=== PATIENT | female | born 1955 ===

== ENCOUNTER 2017-05-16 03:06 | Observation (INO) | payer OTHER, SELFPAY ==
[2017-05-16 04:08] LABS: Amphetamine Not Detected (NotDetected); Methadone Not Detected (NotDetected); Methamphetamine Not Detected (NotDetected)
[2017-05-16 04:34] LABS: #Basophils 0.1 thou/uL (0.0-0.2); #Eosinphils 0.1 thou/uL (0.0-0.7); #Lymphocytes 3.2 thou/uL (1.20-3.40); #Monocytes 0.5 thou/uL (0.11-0.59); #Neutrophils 3.8 thou/uL (1.40-6.50); %Basophils 0.9 % (0.0-1.0); %Eosinophils 1.8 % (0.0-10.0); %Lymphocytes 41.3 % (21.0-51.0); %Monocytes 6.3 % (0.0-10.0); Mean Platelet Volume 6.8 fL (7.4-10.4); Red Blood Cell (RBC) Count 4.06 mill/uL (4.20-5.40); White Blood Cell (WBC) Count 7.7 thou/uL (4.8-10.8)
[2017-05-16 04:39] LABS: ALT (SGPT) 21 U/L (8-55); AST (SGOT) 27 U/L (5-34); Alkaline Phosphatase 77 U/L (40-150); Anion Gap 12 mmol/L (10-20); BUN (Urea Nitrogen) 8 mg/dL (9.8-20.1); Bilirubin, Total 0.3 mg/dL (0.2-1.2); Calc. Creatinine Clearance 0 mL/min (70-130); Calcium 9.6 mg/dL (7.8-10.44); Carbon Dioxide 25 mmol/L (23-31); Chloride 105 mmol/L (98-107); Estimated GFR-MDRD 74; Globulin 2.8 g/dL (2.4-3.5); Protein, Total 6.8 g/dL (6.0-8.3)
[2017-05-16 04:40] LABS: Acetaminophen Less than 6.0 mcg/mL (10.0-30.0); Salicylate Less than 8.0 mg/dL (15.0-30.0)
[2017-05-16 04:49] LABS: Troponin I Less than 0.010 ng/mL (< 0.028)
[2017-05-16 05:35] LABS: Bilirubin Negative (Negative); Blood, Urine Negative (Negative); Glucose, Urine (Dipstick) Negative (Negative); Ketone, Urine Negative (Negative); Nitrite Negative (Negative); Protein, Urine (Dipstick) Negative (Neg-Trace); Urobilinogen 0.2 mg/dL (0.2-1.0)
--- NOTE | 2017-05-16 06:32 | PDOC.EVN ---
Event Note - Event Note Event Note: [id number] H&p DICTATED 1. Chest pain + Abnormal EKG 2. H/O Rt ankle fracture 3. h/o hypoglycemia 4. h/o anxiety plan: see orders
[2017-05-16] MEDS ORDERED: Ondansetron HCl/PF 4 MG/2 ML Vial IVP PRN (06:33)
[2017-05-16] MEDS ORDERED: Acetaminophen 325 MG TAB PO PRN (06:33)
[2017-05-16] MEDS ORDERED: Acetaminophen/Codeine 30-300mg Tablet ONE (06:34)
--- NOTE | 2017-05-16 07:52 | CT ---
CTA CHEST WITH CONTRAST: HISTORY: Transfer from [place] with chest pain. COMPARISON: None. TECHNIQUE: CT angiogram of chest performed after the intravenous administration of contrast. Three-D rendering was provided. FINDINGS: The thyroid is unremarkable. Heart size is normal. 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 This takes a re troesophageal course. No central pulmonary arterial filling defect. No pericardial effusion. The skeleton is unremarkable. Upper abdomen is unremarkable. The lungs are clear. No pneumothorax, effusion, or focal airspace c onsolidation. IMPRESSION: 1. No segmental pulmonary arterial filling defect. 2. No acute intrathoracic abnormality. 3. No pneumonia. 4. 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 POS: [facility]
[2017-05-16 07:55] LABS: Troponin I Less than 0.010 ng/mL (< 0.028)
[2017-05-16 08:39] VITALS: BMI 30.6
[2017-05-16 10:57] LABS: Troponin I 0.012 ng/mL (< 0.028)
[2017-05-16] MEDS ORDERED: ISOVUE-370 76%-LOCM 1 ML ONE (14:08)
--- NOTE | 2017-05-16 14:31 | HP ---
DATE OF ADMISSION: 05/16/2017 CHIEF COMPLAINT: Chest pain. HISTORY OF PRESENT ILLNESS: Patient is a 61-year-old female with past medical history of depression, anxiety, hypoglycemia, now came to the hospital complaining of chest pain. The patient says she is having chest pain and tachycardia for the past 5 days. Chest pain is substernal pressure kind of pain. No aggravating or relieving factors, moderate in intensity. Patient said that pulse was also high for the last 4-5 days greater than 100. Claims to have dyspnea even with minimal exertion. Denies any fever. Denies any chills. Complaints of one episode of nausea and vomiting also. Denies any dizziness, denies any diarrhea at this time. Denies any cough, denies sputum production. The patient said she had a fall last month on the and had right ankle fracture, complains of some left lower extremity swelling, which was chronic. Denies any cough, denies sputum production. PAST MEDICAL HISTORY: As per HPI. PAST SURGICAL HISTORY: Tonsillectomy, hysterectomy. FAMILY HISTORY: Positive for breast cancer, mother of heart problems. MEDICATIONS: Reviewed. ALLERGIES: Reviewed. REVIEW OF SYSTEMS: Constitutional: Denies any fever, denies any chills. Eyes : Denies any vision problems. Ears: Denies any hearing loss. Neck: Denies any neck pain. Cardiovascular system: Positive for chest pain. Respiratory system: Positive for dyspnea. Musculoskeletal: Positive for right ankle pain. Cranial Nerve System: Denies syncope. Positive for dizziness. Psychiatric: Denies anxiety. Integument: Denies any rash. All other review of systems reviewed and are negative. PHYSICAL EXAMINATION: CONSTITUTIONAL/VITAL SIGNS: At the time of H\T\P performed, blood pressure is 140/70, afebrile, respiratory rate 18, pulse ox 98% on room air. GENERAL: The patient appears comfortable. HEENT: Pupils equal, round, and reactive. Anterior nares normal. Ears normal. Teeth intact. Tongue is moist. NECK: Supple. No JVD. CARDIOVASCULAR: S1, S2 present. Regular rate and rhythm. No murmurs, no rubs , no gallops. RESPIRATORY: No wheezing, no rhonchi. Breath sounds present bilaterally. GASTROINTESTINAL: Abdomen is soft, nontender, no guarding, no organomegaly, no masses felt. MUSCULOSKELETAL: Right ankle decreased range of motion, positive for cast. PSYCHIATRIC: Mood appropriate at this time. CRANIAL NERVES SYSTEM: Awake, follows commands. Strength intact, sensory intact. LABORATORY DATA: At the time of H\T\P performed, sodium 138, potassium 3.9, chloride 105, CO2 25, anion gap 12, BUN 8, creatinine 0.79, troponin less than 0.010 x3 sets, serum total protein 6.8, albumin 4. TSH 1.944. White count 7.7 , hemoglobin 13.2, platelet count is 216. ASSESSMENT AND PLAN: The patient is a 61-year-old female. 1. Chest pain/dyspnea, need to rule out PE with the patient having recent fracture. We will go ahead and check CTA to rule out PE. We will consult Cardiology also to evaluate the patient due to abnormal EKG, we will monitor the patient closely. 2. Recent right ankle fracture. We will go ahead and consult ortho to evaluate the patient. We will do x-rays of the right ankle and we will do p.r.n. pain medications. 3. Anxiety, p.r.n. anxiolytic. 5. Hypoglycemia. Monitor blood sugars closely. 6. Pain, p.r.n. pain medications. The case was discussed in detail with the patient. KASSANDRA
[2017-05-16] MEDS: Heparin 5,000 UNITS/ML VIAL SC SCH ×3 (15:38→21:48)
[2017-05-16] MEDS: Famotidine 20 MG TAB PO SCH ×2 (15:38→21:48)
[2017-05-16] MEDS: Aspirin 325 MG TAB PO SCH (15:38)
[2017-05-16] MEDS: Nitroglycerin 2% Ointment 1 INCH/1 GM Packet TOP SCH ×2 (15:39→21:51)
[2017-05-16] MEDS: HYDROcodone/Acetaminophen 5/325 mg Tablet PO PRN ×2 (15:41→21:46)
[2017-05-16] MEDS: Sodium Chloride 0.9% 1,000 ML IV SCH (16:04)
--- NOTE | 2017-05-16 19:35 | CON ---
DATE OF CONSULTATION: 05/16/2017 HISTORY OF PRESENT ILLNESS: Ellyn Vergara is a 61-year-old white female, who was transferred from [place] for evaluation of chest pain. She states ever since the solar eclipse which was approxima tely 2 weeks ago, she has not felt right. Last , 05/11, she had nausea, vomiting, and then profuse diarrhea for over 5 hours. She started to have chest tightness next day, which she states h as continued up until this point 4 days later. She also states that when she takes her blood pressu re that she would have a pulse rate of 170. Every day, she would have a pulse rate of 170. She tri ed aromatherapy, yoga, herbal tea, and etc, etc, and her pulse rate was still 170. Ultimately, she went to the emergency room in [place] on the evening of 05/14. She states that when she arrived there, heart rate was 170, and they gave her something to slow her heart rate down; however, none of the vital signs recorded nor any of the EKG showed heart rates over 80-90. She was transferred her e and has continued to have this constant chest discomfort. Cardiac enzymes have been unremarkable. PAST MEDICAL HISTORY: Includes heart murmur and also self-diagnosed tachycardia as noted above, zunilda rubalcava I am not certain this has ever been documented. PAST SURGICAL HISTORY: Hysterectomy, tonsillectomy. She has a history of depressive disorder on psychiatric evaluation. MEDICATIONS: None. ALLERGIES: PERCOCET and ATORVASTATIN. SOCIAL HISTORY: She smokes 5-10 cigarettes per day. She has 3-4 glasses of wine per day. FAMILY HISTORY: Positive for coronary artery disease. REVIEW OF SYSTEMS: Twelve-point review of systems is otherwise unremarkable. PHYSICAL EXAMINATION: VITAL SIGNS: Blood pressure 138/72, pulse of 82. HEENT: PERRL. NECK: Supple. CHEST: Clear. CARDIAC: S1 and S2 are normal without any S3 or S4. There is a 2/6 systolic murmur along the left upper sternal border. Carotid upstroke is normal. ABDOMEN: Normal bowel sounds without tenderness or organomegaly. EXTREMITIES: Revealed 1+ pretibial edema. She has a cast on her right lower leg. NEUROLOGIC: Grossly intact. SKIN: Warm and dry. LABORATORY DATA: EKG showed normal sinus rhythm with left bundle branch block, which she states she has been told that she has had for over 5 years. CBC is unremarkable. Sodium 138, potassium 3.9, chloride 105, carbon dioxide 25, BUN 8, creatinine 0.79. Cardiac enzymes were unremarkable. Choles terol 216, triglycerides 71, HDL 80, LDL 122. TSH is normal. Urinalysis was unremarkable. Urine d rug screen was unremarkable, except for salicylates and acetaminophen. Plasma alcohol was less than 10. IMPRESSION: 1. History of tachycardia with heart rate of 170 per minute according to the patient; however, I ca nnot find any documentation of this when she arrived to the emergency room in [place]. 2. Chest pressure for 3-4 days with negative cardiac enzymes. 3. Hypercholesterolemia. 4. Smoker. 5. Positive family history. 6. History of depression. PLAN: With left bundle branch block, the best option for further evaluation from a cardiac standpoi nt would be Lexiscan Cardiolite. This will be performed as well as echocardiogram to evaluate her s ystolic murmur.
[2017-05-17] MEDS ORDERED: Regadenoson 0.4 MG/5 ML SYRINGE ONE ×2 (01:00→16:54)
[2017-05-17 04:48] LABS: #Basophils 0.1 thou/uL (0.0-0.2); #Eosinphils 0.2 thou/uL (0.0-0.7); #Lymphocytes 3.7 thou/uL (1.20-3.40); #Monocytes 0.5 thou/uL (0.11-0.59); #Neutrophils 3.1 thou/uL (1.40-6.50); %Basophils 0.9 % (0.0-1.0); %Monocytes 6.2 % (0.0-10.0); Hematocrit 39.9 % (36.0-47.0); Mean Platelet Volume 7.3 fL (7.4-10.4); Red Blood Cell (RBC) Count 4.06 mill/uL (4.20-5.40); White Blood Cell (WBC) Count 7.6 thou/uL (4.8-10.8)
[2017-05-17 05:18] LABS: Anion Gap 12 mmol/L (10-20); BUN (Urea Nitrogen) 13 mg/dL (9.8-20.1); Calc. Creatinine Clearance 94 mL/min (70-130); Calcium 9.4 mg/dL (7.8-10.44); Carbon Dioxide 26 mmol/L (23-31); Chloride 107 mmol/L (98-107); Estimated GFR-MDRD 75
[2017-05-17] MEDS: Nitroglycerin 2% Ointment 1 INCH/1 GM Packet TOP SCH ×2 (06:08→15:02)
[2017-05-17] MEDS: Sodium Chloride 0.9% 1,000 ML IV SCH (08:28)
[2017-05-17 08:43] VITALS: TEMP 99
[2017-05-17] MEDS: Aspirin 325 MG TAB PO SCH (11:04)
[2017-05-17] MEDS: Heparin 5,000 UNITS/ML VIAL SC SCH ×2 (11:05→15:02)
[2017-05-17] MEDS: Famotidine 20 MG TAB PO SCH (11:05)
--- NOTE | 2017-05-17 15:54 | NM ---
CARDIAC SPECT: 05/17/17 HISTORY: 61-year-old female with chest pain. TECHNIQUE: A myocardial perfusion scan was performed using the single isotope one day protocol with technetium 99m Sestamibi. 9 millicuries was injected intravenously for the rest exam followed by 27 millicuries for the stress study. Pharmacologic stress with Lexiscan was monitored and interpreted by Melia Hobbs, nurse practitioner. FINDINGS: Homogeneous tracer distribution is seen in the myocardial segments on stress and rest images without fixed or reversible defects. GATED SPECT LVEF: 67%. WALL MOTION EXAM: Normal. IMPRESSION: Normal myocardial perfusion scan. POS: [facility]
[2017-05-17 17:18] VITALS: BP 145/67
--- NOTE | 2017-05-17 18:08 | DIS ---
DATE OF ADMISSION: 05/16/2017 DATE OF DISCHARGE: 05/17/2017 DISCHARGE DIAGNOSES: 1. Chest pain, non-cardiac. 2. Anxiety disorder. 3. Depression. 4. Right ankle fracture, chronic. 5. Tobacco use. CONSULTATIONS: Dr. Mario Alberto Garcia with Cardiology Service. PERTINENT LABORATORY AND X-RAY FINDINGS: Complete metabolic profile within normal limits. Troponin I negative x3. TSH 1.94. CBC within normal limits. Urinalysis negative. Urine drug screen, 04/28, negative. CT angiogram of the chest dated 05/16/2017 showed no evidence for pulmonary embol us. Cardiolite stress test dated 05/17/2017 showed no evidence of reversible or fixed ischemia with calculated ejection fraction of 67%. A 2D transthoracic echocardiogram dated 05/17/2017 showed pre served ejection fraction of 55%-60%. Mild diastolic dysfunction. Mild mitral and tricuspid valve r egurgitation. HOSPITAL COURSE: Patient was observed on the telemetry unit after presenting with chest pain and ta chycardia, undergoing cardiac evaluation including serial troponin I negative x3. The patient was e valuated by the Cardiology Service with recommendations to undergo Cardiolite stress testing which p atient performed on 05/17/2017 showing no evidence of reversible or fixed ischemia with calculated e jection fraction of 67%. Telemetry monitoring showed intermittent sinus tachycardia with dominant s inus mechanism without acute dysrhythmia. Screening metabolic survey was essentially unremarkable a nd the patient's symptoms likely related to underlying increased stress and anxiety reaction. Curre nt recommendations are to pursue outpatient psychiatry or psychology evaluation versus counseling as well as to establish with a primary care provider for ongoing longitudinal care. Overall, the wang ent did remain clinically stable throughout the hospital course, tolerating regular oral intake, amb ulatory without assistance or difficulty and ready for discharge on 05/17/2017. DISCHARGE MEDICATIONS: None. FOLLOWUP: The patient may follow up with Dr. Andrés Cortes in [place], [place] within 1 week of d ischarge. CONDITION ON DISCHARGE: Stable. ACTIVITY: Ad wilder. DIET: Heart healthy. CODE STATUS: FULL. DISPOSITION: Home, at 05/17/2017.
== END 2017-05-17 19:37 | disposition home or self-care (01) ==
LOC: ERS 03:06 → 2SW 05:50
PROVIDERS: ADMIT Internal Medicine; ATTEND Internal Medicine
DX: R07.89 Other chest pain (principal); F41.9 Anxiety disorder, unspecified; F32.9 Major depressive disorder, single episode, unspecified; S82.891A Other fracture of right lower leg, initial encounter for closed fracture; F17.200 Nicotine dependence, unspecified, uncomplicated; Z88.5 Allergy status to narcotic agent; Z88.8 Allergy status to other drugs, medicaments and biological substances; Z90.49 Acquired absence of other specified parts of digestive tract; Z90.89 Acquired absence of other organs; Z80.3 Family history of malignant neoplasm of breast; Z82.49 Family history of ischemic heart disease and other diseases of the circulatory system
CPT/HCPCS: 36415; 71275; 78452; 80048; 80053; 80306; 80307; 81003; 82553; 84443; 84484; 85025; 93005; 93017; 93306; 94760; 96372; A4216; A9500; G0378; J1644; J2785